=== PATIENT | male | born 1990 | race American Indian/Alaskan Native ===

== ENCOUNTER 2018-03-03 17:25 | Inpatient (IN) | payer OTHER ==
[2018-03-03 17:49] VITALS: BMI 46.7
[2018-03-03] MEDS ORDERED: Sodium Chloride 0.9% 1,000 ML IV STA (17:59)
[2018-03-03 19:24] LABS: ALBUMIN 4.2 g/dL (3.0-4.8); ALT/SGPT 52 U/L (7-56); AST/SGOT 46 U/L (17-59); BLOOD UREA NITROGEN 13 mg/dL (7-21); CALCIUM 9.5 mg/dL (8.4-10.5); GFR AFRICAN-AMERICAN > 60; GFR NON-AFRICAN AMERICAN > 60
[2018-03-03 19:28] LABS: BASO # 0.01 K/mm3 (0.0-2.0); BASO % 0.1 % (0.0-3.0); GRAN # 6.63 (1.4-6.5); GRAN % 78.6 % (50.0-68.0); HEMOGLOBIN 14.6 g/dL (14.0-18.0); LYMPH # 1.2 (1.2-3.4); LYMPH % 14.3 % (22.0-35.0); MEAN CELL VOLUME 82.5 fl (80.0-105.0); MEAN CORPUSCULAR HEMOGLOBIN 28.1 pg (25.0-35.0); MEAN PLATELET VOLUME 8.9 fl (7.0-11.0); MONO # 0.6 (0.1-0.6); RBC 5.2 10^6/uL (3.5-6.1); RED CELL DISTRIBUTION WIDTH 13.3 % (11.5-14.5); WHITE BLOOD COUNT 8.4 10^3/ul (4.5-11.0)
--- NOTE | 2018-03-03 19:29 | ED PDOC ---
Arrival/HPI - General Chief Complaint: ENT Problem Time Seen by Provider: 03/03/18 17:40 Historian: Patient - History of Present Illness Narrative History of Present Illness (Text): 03/03/18 19:26 27-year-old male presents today with a one-week history of throat pain. Patient states he's been on amoxicillin for the past week without improvement of his symptoms. Patient states pain worsened today so he went to another hospital for which she had drainage of a right peritonsillar abscess. Patient states moderate amount of purulent discharge was removed/released. Patient states he is having difficulty sleeping and night because of the swelling in the throat. Patient states also his doctor wants him evaluated for sleep apnea. Patient complaining of subjective fevers at home. Denies cough. Denies ear pain. Denies headaches. No other complaints Past Medical History - Provider Review Nursing Documentation Reviewed: Yes - Travel History Have you recently traveled outside [place] w/in the past 3 mons?: No - Infectious Disease Hx of Infectious Diseases: None - Tetanus Immunization Tetanus Immunization: Unknown - Past Medical History Past Medical History: No Previous - Psychiatric Hx Depression: No Hx Emotional Abuse: No Hx Physical Abuse: No Hx Substance Use: Yes - Past Surgical History Past Surgical History: Non-Contributing - Surgical History Hx Orthopedic Surgery: Yes (left ankle) - Anesthesia Hx Anesthesia: Yes Hx Anesthesia Reactions: No Hx Malignant Hyperthermia: No - Suicidal Assessment Feels Threatened In Home Enviroment: No Family/Social History - Physician Review Nursing Documentation Reviewed: Yes Family/Social History: Unknown Family HX Smoking Status: Never Smoked Hx Alcohol Use: Yes (social) Hx Substance Use: Yes Substance used: cannabis Hx Substance Use Treatment: No Allergies/Home Meds Allergies/Adverse Reactions: Allergies No Known Allergies Allergy (Verified 01/01/16 08:32) Home Medications: Home Meds Medication Instructions Recorded Confirmed Amoxicillin [Amoxicillin] 500 mg PO BID 03/03/18 03/03/18 Review of Systems - Review of Systems Constitutional: Fevers. absent: Fatigue ENT: Sore Throat Respiratory: absent: SOB, Cough Cardiovascular: absent: Chest Pain, Palpitations Gastrointestinal: absent: Abdominal Pain, Nausea, Vomiting Genitourinary Male: absent: Dysuria Musculoskeletal: absent: Arthralgias, Back Pain, Neck Pain Skin: absent: Rash, Pruritis Neurological: absent: Headache, Dizziness Psychiatric: absent: Anxiety, Depression Physical Exam Vital Signs Reviewed: Yes Vital Signs Temp Pulse Pulse Resp BP Pulse Ox 03/03/18 23:07 97.8 F 75 70 20 146/84 03/03/18 22:17 83 18 131/69 97 03/03/18 21:03 98 F 78 18 135/70 98 03/03/18 19:25 97.6 F 80 18 138/80 100 03/03/18 17:32 97.4 F L 82 18 141/83 99 Temperature: Afebrile Blood Pressure: Normal Pulse: Regular Respiratory Rate: Normal Appearance: Positive for: Well-Appearing, Non-Toxic, Comfortable Pain Distress: None Mental Status: Positive for: Alert and Oriented X 3 - Systems Exam Head: Present: Atraumatic Conjunctiva: Present: Normal Ears: Present: Normal, NORMAL TM Mouth: Present: Moist Mucous Membranes, Normal Lips, Normal Tounge. No: Drooling, Trismus Pharnyx: Present: ERYTHEMA, EXUDATE, TONSILS ENLARGED (right sided), Peritonsilar Swelling, Uvular Deviation, Muffled/Hoarse Voice, Soft Palate/ Uvular Edema. No: Strider Nose (External): Present: Atraumatic Neck: Present: Normal Range of Motion, Lymphadenopathy, Trachea Midline Respiratory/Chest: Present: Clear to Auscultation, Good Air Exchange. No: Respiratory Distress, Accessory Muscle Use Cardiovascular: Present: Regular Rate and Rhythm, Normal S1, S2. No: Murmurs Abdomen: No: Tenderness, Rebound, Guarding Back: Present: Normal Inspection Neurological: Present: GCS=15, Speech Normal Skin: Present: Warm, Dry, Normal Color. No: Rashes Psychiatric: Present: Alert, Oriented x 3 Medical Decision Making ED Course and Treatment: 03/03/18 19:30 Patient is nontoxic well appearing in no distress. Stable vitals. Patient with right-sided peritonsillar abscess with uvular deviation and multiple voice. The patient he had I&D of the peritonsillar abscess this morning. Patient was seen by his primary care physician and sent him to the emergency room for admission CBC wnl CMP wnl Blood cultures pending Solu-Medrol 125 mg given IV Clindamycin started IV CAT scan of this neck with IV contrast:FINDINGS: Oropharynx: See below. Hypopharynx: Unremarkable. Larynx: Unremarkable. Normal epiglottis. Trachea: Unremarkable. Retropharyngeal space: Unremarkable. Submandibular/parotid glands: Unremarkable. Glands are normal in size. Thyroid: Unremarkable. No enlarged or calcified nodules. Bones/joints: The large right peritonsillar abscess collection measuring 1.9 x 2.2 cm in axial dimension and 3.7 cm in craniocaudal dimension. There is cranial extension of the abscess at level of nasopharynx. Extensive mucosal thickening seen in nasopharynx and oropharynx with very large bilateral tonsils. Left inferior orbital wall surgical mesh. No acute fracture. Soft tissues: Unremarkable. Vasculature: No evidence of acute pathology. Lymph nodes: Mildly prominent lymph nodes likely reactive. Sinuses: Right maxillary sinus retention cyst. Lung apices: Unremarkable as visualized. IMPRESSION: Pharyngitis and tonsillitis with large right peritonsillar abscess collection as described above 03/03/18 21:[address] Santoyo; he advised continue solumedrol and clindamycin and he will see patient tomorrow in hospital case discussed with dr. pichardo; accepts admission; consult ent and ID (dr. garcia) pt reassessment; pt feeling better; wants to eat. vitals stable. no distress. pt seen and evaluated by dr. manzano. IMPRESSION; peritonsillar abscess, failure of outpatient treatment observational status to remote tele Reassessment Condition: Re-examined, Improving,but remains with symptoms - Lab Interpretations Lab Results: 03/03/18 18:30 03/03/18 18:30 Lab Results 03/03/18 18:30: WBC 8.4, RBC 5.20, Hgb 14.6, Hct 42.9, MCV 82.5, MCH 28.1, MCHC 34.0, RDW 13.3, Plt Count 246, MPV 8.9, Gran % 78.6 H, Lymph % (Auto) 14.3 L, Lamb % (Auto) 7.0 H, Eos % (Auto) 0.0 L, Baso % (Auto) 0.1, Gran # 6.63 H, Lymph # (Auto) 1.2, Lamb # (Auto) 0.6, Eos # (Auto) 0.0, Baso # (Auto) 0.01 03/03/18 18:30: Sodium 141, Potassium 4.5, Chloride 98, Carbon Dioxide 32, Anion Gap 17, BUN 13, Creatinine 0.8, Est GFR ( Amer) > 60, Est GFR (Non- Af Amer) > 60, Random Glucose 121 H, Calcium 9.5, Total Bilirubin 0.4, AST 46, ALT 52, Alkaline Phosphatase 89, Total Protein 8.4 H, Albumin 4.2, Globulin 4.2 , Albumin/Globulin Ratio 1.0 L - RAD Interpretation Radiology Orders: 03/03/18 18:06 NECK SOFT TISSUE W/CONTRAST [CT] Stat - Medication Orders Current Medication Orders: Ampicillin Sodium/Sulbactam (Sodium 3 gm/ Sodium Chloride) 100 mls @ 200 mls/ hr IVPB Q6 VANI PRN Reason: Protocol Discontinued Medications Sodium Chloride (Sodium Chloride 0.9%) 1,000 mls @ 999 mls/hr IV .Q1H1M STA Stop: 03/03/18 18:59 Last Admin: 03/03/18 18:05 Dose: 999 mls/hr eMAR Start Stop Document 03/03/18 18:05 LA (Rec: 03/03/18 18:59 LA [id number]) Intravenous Solution Start Date 03/03/18 Start Time 18:05 End Date 03/03/18 End time 19:06 Total Infusion Time 61 Clindamycin Phosphate 900 mg/ (Sodium Chloride) 106 mls @ 106 mls/hr IVPB STAT STA PRN Reason: Protocol Stop: 03/03/18 19:04 Last Admin: 03/03/18 19:02 Dose: 106 mls/hr eMAR Start Stop Document 03/03/18 19:02 LA (Rec: 03/03/18 19:03 LA [id number]) Intravenous Solution Start Date 03/03/18 Start Time 19:02 End Date 03/03/18 End time 20:02 Total Infusion Time 60 Methylprednisolone (Solu-Medrol) 125 mg IVP STAT STA Stop: 03/03/18 18:05 Last Admin: 03/03/18 19:02 Dose: 125 mg IVP Administration Document 03/03/18 19:02 LA (Rec: 03/03/18 19:02 LA [id number]) Charges for Administration # of IVP Administrations 1 Disposition/Present on Arrival - Present on Arrival Any Indicators Present on Arrival: No History of DVT/PE: No History of Uncontrolled Diabetes: No Urinary Catheter: No History of Decub. Ulcer: No History Surgical Site Infection Following: None - Disposition Have Diagnosis and Disposition been Completed?: Yes Diagnosis: Peritonsillar abscess Disposition: HOSPITALIZED Disposition Time: 21:19 Patient Plan: Observation Patient Problems: Current Active Problems Problem Status Onset Peritonsillar abscess Acute Condition: FAIR
[2018-03-03] MEDS ORDERED: Iohexol 350 MG/100 ML VIAL ONE (19:38)
--- NOTE | 2018-03-04 09:59 | CT ---
Date of service: 03/03/2018 PROCEDURE: CT NECK WITH CONTRAST HISTORY: right sided tonsillar swelling and uvular deviatio COMPARISON: None TECHNIQUE: CT of the neck with intravenous contrast. Coronal and sagittal reformats generated. Intravenous contrast dose: 100 cc of Omni 350 Radiation dose: DLP 540 mGy-cm This CT exam was performed using one or more of the following dose reduction techniques: Automated exposure control, adjustment of the mA and/or kV according to patient size, and/or use of iterative reconstruction technique. FINDINGS: NASOPHARYNX: There is swelling of the adenoids as well as the soft palate and uvula. SUPRAHYOID NECK: There is tonsillar swelling with a a right-sided tonsillar abscess measuring 27 mm in height by 19 mm wide and 15 mm AP. INFRAHYOID NECK: Unremarkable larynx, hypopharynx, and supraglottic space. Vocal cords intact. MASS: None. GLANDS: Parotid and submandibular glands unremarkable. Normal size thyroid gland, without nodule. LYMPH NODES: Right-sided cervical adenopathy CERVICAL SPINE: No fracture or focal lesion. VASCULAR STRUCTURES: Unremarkable. The report concurs with the preliminary [facility] report OTHER FINDINGS: None. IMPRESSION: There is tonsillar swelling with a a right-sided tonsillar abscess measuring 27 mm in height by 19 mm wide and 15 mm AP.
--- NOTE | 2018-03-04 12:57 | CON ---
DATE: 03/04/2018 HISTORY OF PRESENT ILLNESS: This is a 27-year-old black male with a 1-week history of progressive sore throat, treated as an outpatient with oral antibiotics without relief. The patient states that on 03/03/2018, he was seen in [facility] where a right peritonsillar abscess was drained and then the symptoms progressed over the day. He was subsequently seen in the emergency room at [facility] where again there was noted to be evidence of a right peritonsillar swelling. A CT scan examination revealed evidence of 2 cm right peritonsillar abscess persistent. In addition to the current symptoms that the patient is complaining of, he also does admit to loud snoring with witnessed apnea and difficulty breathing through his nose as well over the several years. PAST MEDICAL HISTORY: Unremarkable. SOCIAL HISTORY: Unremarkable. ALLERGIES: THE PATIENT DID NOT HAVE ANY KNOWN DRUG ALLERGIES. PHYSICAL EXAMINATION EARS, NOSE AND THROAT: There was evidence of right peritonsillar swelling and utilizing a #21 gauge needle, approximately 2 mL pus was aspirated from right peritonsillar abscessed region. There was evidence of turbinate hypertrophy with deviated septum. Tympanic membrane examination was unremarkable. GENERAL: The patient was alert and oriented x3. RESPIRATORY: Lungs: patient with no acute distress. Breathing rate was normal and lungs were clear to auscultation. Rocky Santoyo DO [facility]
[2018-03-04] MEDS: Dexamethasone 4 mg/1 ml IVP SCH ×2 (13:43→22:38)
--- NOTE | 2018-03-04 14:32 | CP.PCM.CON ---
History of Present Illness - History of Present Illness History of Present Illness: 27 year old male with PMH of morbid obesity with BMI 46, substance abuse, S/P left ankle surgery came in to [facility] complaining of pain on swallowing and swelling of his throat. The patient states that he has been on Amoxicillin for about a week after presenting in another hospital. There was no relief in his symptoms despite the antibiotic. He denies fever or chills, no nausea or vomiting, no chest pain, no SOB, no headache or dizziness, no abdominal pain, no diarrhea, no dysuria, no animal contacts. CT neck is showing right peritonsillar abscess and this morning ENT saw him and drained the abscess. Infectious Diseases consult is requested to further evaluate and manage. Review of Systems - Review of Systems All systems: reviewed and no additional remarkable complaints except (as per HPI ) Past Patient History - Infectious Disease Hx of Infectious Diseases: None - Tetanus Immunizations Tetanus Immunization: Unknown - Past Social History Smoking Status: Never Smoked - MUSCULOSKELETAL/RHEUMATOLOGICAL Hx Falls: No - PSYCHIATRIC Hx Psychophysiologic Disorder: Yes Hx Substance Use: Yes Other/Comment: EtOH and substance abuse - SURGICAL HISTORY Hx Surgeries: Yes Other/Comment: L. ankle sx. - ANESTHESIA Hx Anesthesia: Yes Hx Anesthesia Reactions: No Hx Malignant Hyperthermia: No Meds Allergies/Adverse Reactions: Allergies Allergy/AdvReac Type Severity Reaction Status Date / Time No Known Allergies Allergy Verified 01/01/16 08:32 - Medications Medications: Current Medications Ampicillin Sodium/Sulbactam (Sodium 3 gm/ Sodium Chloride) 100 mls @ 200 mls/ hr IVPB Q6 VANI PRN Reason: Protocol Physical Exam - Constitutional Appears: Non-toxic, Chronically Ill - Head Exam Head Exam: NORMAL INSPECTION - ENT Exam Additional comments: pharyngeal erythema - Neck Exam Neck exam: Negative for: Meningismus - Respiratory Exam Respiratory Exam: absent: Rales, Rhonchi - Cardiovascular Exam Cardiovascular Exam: +S1, +S2 - GI/Abdominal Exam GI & Abdominal Exam: Soft. absent: Tenderness Results - Vital Signs Recent Vital Signs: Last Vital Signs Temp 98 F 03/03/18 23:10 Pulse 78 03/03/18 23:10 Resp 18 03/03/18 23:10 BP 129/75 03/03/18 23:10 Pulse Ox 98 03/03/18 23:10 - Labs Result Diagrams: 03/03/18 18:30 03/03/18 18:30 Assessment & Plan - Assessment and Plan (Free Text) Plan: Assessment Right peritonsillar abscess S/P drainage by ENT today morbid obesity with BMI 46 substance abuse S/P left ankle surgery Plan Started Unasyn (Was given Clindamycin in the ED) pending blood cx, tonsillar abscess cultures check HIV test Will monitor clinically
[2018-03-05 01:47] VITALS: O2SAT 98
--- NOTE | 2018-03-05 03:45 | CON ---
DATE: 03/04/2018 PULMONARY CONSULTATION REFERRING PHYSICIAN: Sunita Garcia MD REASON FOR CONSULT: Peritonsillar abscess, short of breath with probably has sleep apnea syndrome. HISTORY OF PRESENT ILLNESS: This is a 27 years old gentleman who had a sick contact at home, had some cough and shortness of breath. He was seen at local emergency room, I think the day before they have drained some of the pus from his subtonsillar abscess, but his symptoms get some worse with odynophagia, sore throat, difficulty breathing, comes to the emergency room, seen by ENT and again abscess was drained and placed on antibiotics as well as steroid, and admitted for further workup. He is lying in the bed, head at 45 degrees. Has nasal swab, does have some stuffy nose and rhinitis, admit to have loud snoring, daytime sleepy and tired. No hemoptysis or emesis. No hematuria. No diarrhea reported. PAST MEDICAL HISTORY: There is no significant cardiopulmonary disease other than suspected sleep apnea syndrome. SOCIAL HISTORY: There is no history of smoking or alcohol use. ALLERGIES: NONE KNOWN. FAMILY HISTORY: Unremarkable. MEDICATIONS: He is on Unasyn 3 g IV every 6 hours, also getting Decadron 10 mg every 8 hours. REVIEW OF SYSTEMS: On and off headache, loud snoring, nasal sound, short of breath. No chest pain. No nausea. No vomiting. No diarrhea. No leg pain or leg swelling. PHYSICAL EXAMINATION: GENERAL: [id number] distress. VITAL SIGNS: Temperature is 98, heart rate 65, respiratory rate is 20, blood pressure 130/87, pulse ox 96% on room air. HEENT: Moist mucous membrane. Crowded airway. Right tonsillar area has a large swelling erythema. NECK: Supple. Has some mild inspiratory stridor. LUNGS: Fair airflow with some rhonchi. HEART: S1, S2. ABDOMEN: Soft, nontender, no organomegaly. EXTREMITIES: There is no edema. NEUROLOGIC: Awake, alert, follow simple commands. LABORATORY DATA: Shows hemoglobin 14.6, hematocrit 42.9, WBC 8.4, and platelets 246. Sodium 145, potassium 4.5, chloride 98, bicarbonate 32. BUN 13, creatinine 0.8. Glucose 121. Calcium 9.5. Total bili 0.4, AST 46, ALT 52, alk phos is 89, albumin is 4.2. Has a CAT scan of the soft tissue of the neck done, which shows tonsillar swelling with a right-sided tonsillar abscess measuring 27 mm in height, 19 mm in wide, and 15 mm in AP diameter. IMPRESSION AND PLAN: Tonsillar abscess, status post drainage, on steroids and antibiotics. There is strong evidence of sleep apnea syndrome. We will add patient on inhaled bronchodilator, nasal saline 2 sprays to each nostril every [address] him on BiPAP with nasal mask at night. Keep head at 45 degrees. Outpatient attended sleep study. We will add gastric prophylaxis and deep vein thrombosis prophylaxis. Thank you and we will follow with you. Shaun Hoffmann MD
--- NOTE | 2018-03-05 04:46 | HP ---
CHIEF COMPLAINT: Sore throat. HISTORY OF PRESENT ILLNESS: Mr. Bladimir Chung is a 27-year-old male, has sore throat from 1 week. Patient states that he has been on amoxycillin for the past week, he got from my office without improvement of his symptoms. Patient states pain worsened. Then he went to [facility] Emergency Room. They did some abscess drainage. Patient went home. Patient's mother Ms. Chung called me that he is having shortness of breath and cannot talk. Then patient came back to my office, when I saw his throat, difficulty of breathing, I sent him back to the emergency room. He has right peritonsillar abscess and [facility] removed the purulent discharge. Patient is having difficulty in sleeping because of swelling in the throat. Patient is complaining of fever, having shortness of breath. No hematuria or hematochezia. We admitted the patient. Called ID, ENT, and sleep specialist enrollment consultant. Discussion done with Dr. Santoyo and Dr. Hoffmann. PAST MEDICAL HISTORY: Nonsignificant. FAMILY HISTORY: Father and mother noncontributory. HABITS: Never smoked. Alcohol, yes, socially. Substance abuse, yes. Substance used is cannabis. ALLERGIES: PATIENT IS NOT ALLERGIC TO ANY MEDICATIONS. HOME MEDICATION: Augmentin. REVIEW OF SYSTEMS: Patient was seen and examined at the bedside, feeling feverish, sore throat, having shortness of breath. No chest pain or palpitation. No abdominal pain. No nausea or vomiting. No dysuria. No arthralgia, back pain, neck pain. No pruritus, no rash. No headache or dizziness. No anxiety or depression. PHYSICAL EXAMINATION: VITAL SIGNS: Temperature 97.9, pulse 68, respiratory rate 16, blood pressure 143/74. HEENT: Head normocephalic, atraumatic. Eyes PERRLA. Extraocular muscles intact. Conjunctivae clear. Nose patent. Mucous membrane moist. Throat tender, hard to swallow. NECK: Supple. No carotid bruit. No JVD or thyromegaly. LUNGS: Clear to auscultation. ABDOMEN: Soft. Bowel sounds present. No organomegaly. EXTREMITIES: No edema. No cyanosis. NEUROLOGICAL: The patient is awake and alert. Follows simple commands. LABORATORY DATA: White blood cells 8.4, hemoglobin 14.6, hematocrit 42.9, platelets 246. Sodium 141, potassium 4.9, BUN 30, creatinine 0.8, glucose 121. ASSESSMENT: Mr. Bladimir Chung is a 27-year-old male with no significant past medical history, except substance abuse, has right peritonsillar abscess, status post drainage, first by [facility], then by ENT in [facility]; morbid obesity with body mass index of 46, history of substance abuse, left ankle surgery, rule out sepsis, started Unasyn, was given clindamycin in the Emergency Department. Tonsillar abscess cultures and human immunodeficiency virus testing done. We will continue antibiotics as per Dr. Joseph Henriquez. Seen by Dr. Rocky Santoyo, ENT. Rule out obstructive sleep apnea syndrome, obesity. Discussion done with Dr. Rocky Santoyo, ENT and Dr. Hoffmann. We will continue present treatment. Soft tissue neck CT was done. We will follow up. Sunita Garcia MD
[2018-03-05] MEDS: Dexamethasone 4 mg/1 ml IVP SCH (06:06)
[2018-03-05 06:20] LABS: HEMOGLOBIN 14.2 g/dL (14.0-18.0); MEAN CELL VOLUME 82.4 fl (80.0-105.0); MEAN CORPUSCULAR HEMOGLOBIN 27.8 pg (25.0-35.0); MEAN CORPUSCULAR HGB CONC 33.7 g/dl (31.0-37.0); MEAN PLATELET VOLUME 8.9 fl (7.0-11.0); RBC 5.11 10^6/uL (3.5-6.1); RED CELL DISTRIBUTION WIDTH 13.4 % (11.5-14.5)
[2018-03-05 06:32] LABS: IRON 73 ug/dL (45-180)
[2018-03-05 06:41] LABS: % IRON SATURATION 31 % (20-55); TOTAL IRON BINDING CAPACITY 233 ug/dL (261-462)
[2018-03-05 06:48] LABS: LDL CHOLESTEROL 161 mg/dL (0-129)
[2018-03-05 07:05] LABS: BLOOD UREA NITROGEN 16 mg/dL (7-21); CALCIUM 9.1 mg/dL (8.4-10.5); GFR AFRICAN-AMERICAN > 60; GFR NON-AFRICAN AMERICAN > 60; HDL CHOLESTEROL 31 mg/dL (29-60)
[2018-03-05] MEDS: Enoxaparin 40 mg Syringe SC SCH (09:38)
[2018-03-05] MEDS: Amoxicillin-Clav 875-125 mg Tab PO SCH ×2 (12:32→21:07)
[2018-03-05 12:50] LABS: FOLATE 8.6 ng/mL
--- NOTE | 2018-03-05 13:45 | CP.PCM.PN ---
Subjective - Date & Time of Evaluation Date of Evaluation: 03/05/18 Time of Evaluation: 10:55 - Subjective Subjective: Patient is feeling better, no fevers, swallowing better. Objective - Vital Signs/Intake and Output Vital Signs (last 24 hours): Temp Pulse Resp BP Pulse Ox 97.6 F 60 20 149/75 98 03/05/18 06:00 03/05/18 08:00 03/05/18 06:00 03/05/18 06:00 03/05/18 06:00 Intake and Output: 03/05/18 03/05/18 06:59 18:59 Intake Total 860 Balance 860 - Medications Medications: Current Medications Dexamethasone (Decadron Inj) 10 mg IVP Q8 VANI Last Admin: 03/05/18 06:06 Dose: 10 mg Enoxaparin Sodium (Lovenox) 40 mg SC DAILY VANI PRN Reason: Protocol Last Admin: 03/05/18 09:38 Dose: 40 mg Ampicillin Sodium/Sulbactam (Sodium 3 gm/ Sodium Chloride) 100 mls @ 200 mls/ hr IVPB Q6 VANI PRN Reason: Protocol Last Admin: 03/05/18 06:07 Dose: 200 mls/hr Pantoprazole Sodium (Protonix Inj) 40 mg IVP DAILY VANI Last Admin: 03/05/18 09:39 Dose: 40 mg Sodium Chloride (Ceiba Nasal [place]) 0 ml NS Q2 VANI Last Admin: 03/05/18 09:41 Dose: 2 sprays - Labs Labs: 03/05/18 05:20 03/05/18 05:20 - Constitutional Appears: Non-toxic - Head Exam Head Exam: NORMAL INSPECTION - ENT Exam Additional comments: pharyngeal swelling and erythema - Respiratory Exam Respiratory Exam: absent: Rales, Rhonchi - Cardiovascular Exam Cardiovascular Exam: +S1, +S2 - GI/Abdominal Exam GI & Abdominal Exam: Soft. absent: Tenderness Assessment and Plan - Assessment and Plan (Free Text) Plan: Assessment Right peritonsillar abscess S/P drainage POD#1, clinically improving morbid obesity with BMI 46 substance abuse S/P left ankle surgery Plan on Unasyn day 2 (Was given Clindamycin in the ED) - blood cx are negative, tonsillar abscess cultures are pending - patient can be switched to PO Augmentin for another 10 days with outpatient follow up with PMD HIV test is non-reactive
[2018-03-05 14:10] VITALS: RESP 18; TEMP 98.1
--- NOTE | 2018-03-05 16:49 | PN ---
DATE: 03/05/2018 PULMONARY PROGRESS NOTE REFERRING PHYSICIAN: Sunita Garcia MD SUBJECTIVE: Sitting up in a bed, having lunch, and feels much better pain is improved. Breathing is better. Rhinitis and secretion decreased. No nausea, no vomiting, no diarrhea. No leg pain or leg swelling. OBJECTIVE: GENERAL: In no acute distress. VITAL SIGNS: Temperature is 98, heart rate 63, respiratory rate is 18, blood pressure 155/75, pulse ox 98% on room air. HEENT: Moist mucous membranes. Crowded airway. Mallampati score is 4. NECK: Has a left tonsillar abscess with swelling. LUNGS: A few scattered rhonchi. HEART: S1 and S2. ABDOMEN: Soft, nontender. No organomegaly. EXTREMITIES: No edema. NEUROLOGIC: Awake, alert, and follows simple command. MEDICATIONS: He is on Augmentin 875 twice a day, Decadron 10 mg every 6 hours IV, Lovenox 40 mg daily, Protonix 40 mg daily. LABORATORY DATA: Shows hemoglobin 14.2, hematocrit 42.1, WBC 10,000, platelets 282. Sodium 139, potassium 4.2, chloride 100, bicarbonate 28. BUN 16, creatinine 0.7. Hemoglobin A1c 5.8. Iron is 73. TSH 0.2. HIV 1 and 2 is non reactive. Microbiology, blood culture, there is no growth. IMPRESSION AND PLAN: Tonsillar abscess with respiratory insufficiency, odynophagia, may have sleep apnea syndrome. Case discussed with nursing staff. Apparently, the patient was not placed on BiPAP overnight. Hopefully, he will be on BiPAP with a nasal mask only, no full-face mask. We will decrease his Decadron to 4 mg every 8 hours by mouth. Continue antibiotics. Gastric and deep venous thrombosis prophylaxes. We will reevaluate in the morning. Thank you and we will follow with you. Shaun Hoffmann MD
[2018-03-05 17:37] VITALS: BP 152/94; PULSE 72
--- NOTE | 2018-03-05 20:25 | PN ---
DATE: 03/05/2018 SUBJECTIVE: The patient is a 27 years old male. Patient was seen and examined at the bedside on 03/05/2018. Looking comfortable. Feels much better. Pain is better. Coughing is better. Shortness of breath is better. Breathing is better. Rhinitis and secretion decreased. No nausea, vomiting, or edema. No hematuria. No hematochezia. No swelling of the legs. No chest pain. No palpitation. No headache. No dizziness. PHYSICAL EXAMINATION: VITAL SIGNS: Temperature 98, heart rate 63, respiratory rate is 18, blood pressure 155/75, pulse oximetry 98% on room air. HEENT: Head: Normocephalic, atraumatic. Eyes: PERRLA. Extraocular muscles intact. Conjunctivae clear. Nose patent. Mucous membrane moist. NECK: Supple. No carotid bruit. No JVD or thyromegaly. CHEST: Bilaterally symmetrical. HEART: S1, S2 positive. LUNGS: Clear to auscultation. ABDOMEN: Soft. Bowel sounds present. No organomegaly. EXTREMITIES: No edema. No cyanosis. NEUROLOGICAL: Patient is awake and alert. Moving all 4 extremities. No focal deficits. MEDICATIONS: Augmentin, Decadron, Lovenox, Pepcid, and Protonix. LABORATORY DATA: Hemoglobin 14.2, hematocrit 42.1, white blood cells 10,000, and platelets 282. Sodium 139, potassium 4.2. BUN 16, creatinine 0.7. TSH 0.2. HIV 1 and 2 are negative. Cultures, no growth. ASSESSMENT AND PLAN: Mr. Bladimir Chung is a 27 years old male with tonsillar abscess with respiratory insufficiency, odynophagia, sleep apnea syndrome, obesity, Discussion done with this patient and nursing staff. According to the patient, patient was not placed on BiPAP overnight. Hopefully, the patient will get BiPAP two days with nasal mask only, no full-face mask. We will decrease his Decadron to 4 mg every 8 hours by mouth as per Dr. Hoffmann. Continue antibiotics. Gastrointestinal and deep venous thrombosis prophylaxes. Repeat labs. We will follow up. Sunita Garcia MD [facility] # [id number] WILLIAM
[2018-03-06] MEDS ORDERED: Pantoprazole 40 mg EC Tab PO SCH (06:00)
[2018-03-06] MEDS: Amoxicillin-Clav 875-125 mg Tab PO SCH (09:56)
[2018-03-06] MEDS: Enoxaparin 40 mg Syringe SC SCH (09:58)
--- NOTE | 2018-03-06 10:26 | PN ---
DATE: 03/06/2018 SUBJECTIVE: The patient is in bed, in no acute distress, nontoxic. PHYSICAL EXAMINATION: VITAL SIGNS: Temperature is 98, blood pressure is 150/90, respiratory rate of 18. HEENT: Examination of HEENT is unremarkable. NECK: Supple. LUNGS: Have decreased breath sounds. HEART: Normal S1 and S2. ABDOMEN: Soft, nontender. LABORATORY DATA: Laboratory examination reveals the white count is 10,000. Chemistries reveals a BUN of 16, creatinine of 0.7. HIV is negative. Microbiology reveals the blood cultures are negative. ASSESSMENT AND PLAN: A 27-year-old male with a right peritonsillar abscess, status post drainage, post day #2, doing better with morbid obesity, body mass index of 46 and on Unasyn. Thus far, the patient is tolerating his diet well. The blood cultures are negative. There are no pharyngeal cultures. He will be able to switch to p.o. Augmentin. The patient's human immunodeficiency virus is negative. We will follow closely. Rayo Valladares MD
[2018-03-06] MEDS ORDERED: Barium Sulfate Susp 2.1% w/v, 2.0% w/w 450 mL Bottle PO ONE (10:36)
--- NOTE | 2018-03-07 04:59 | DS ---
Dr. Nicolas Oliva covering for Dr. Sunita Garcia. HOSPITAL COURSE: The patient is a 27-year-old male admitted on 03/04/2018 with a right peritonsillar abscess. He had been seen previously at [facility] and had an incision and drainage of the tonsillar abscess. He presented with difficult breathing and pain of the neck. He was admitted and started on IV antibiotics, was seen in consultation by Dr. Valladares for Infectious Disease and Dr. Santoyo for ENT. The patient had an uneventful hospital course and was switched today to oral Augmentin. He was discharged to home today in stable condition. PHYSICAL EXAMINATION: VITAL SIGNS: Blood pressure 152/94, temperature 98.1, pulse 72, respiratory rate 18. NECK: Supple. There is no stridor. LUNGS: Clear. HEART: Regular rate and rhythm. ABDOMEN: Soft, nontender, obese. EXTREMITIES: Without cyanosis, clubbing, or edema. NEUROLOGIC: The patient is awake and oriented x3 without focal, sensory or motor deficits. SKIN: Warm and dry. IMPRESSION: 1. Right peritonsillar abscess, clinically improved. 2. Hypertension. 3. Obesity. PLAN: The patient was discharged to home today in stable condition on the following medications: Decadron 4 mg every 8 hours, Augmentin 875 mg twice daily, Protonix 40 mg daily. He was advised to follow up within the next 2-3 days with his PMD, Dr. Garcia. He is maintained on a regular diet. Activities ad libitum. GABRIEL St MD
== END 2018-03-06 12:22 | disposition home or self-care (01) | DRG 133 ==
LOC: ED 17:25 → ERH 20:53 → 2RNO 23:12 → OBSVTOIN 03-04 23:03 → 3RSO 03-05 17:53
PROVIDERS: ADMIT Internal Medicine; ATTEND Internal Medicine
PROC: 0C9PXZZ Drainage of Tonsils, External Approach (ICD-10-PCS; principal; 2018-03-04)
DX: J36 Peritonsillar abscess (principal); Z68.42 Body mass index [BMI] 45.0-49.9, adult; J31.0 Chronic rhinitis; I10 Essential (primary) hypertension; E66.01 Morbid (severe) obesity due to excess calories; G47.30 Sleep apnea, unspecified; J34.3 Hypertrophy of nasal turbinates; J34.2 Deviated nasal septum; F19.10 Other psychoactive substance abuse, uncomplicated